=== PATIENT | male | born 1945 | race Caucasian/White ===

== ENCOUNTER → 2017-10-28 | Day surgery (SDC) | payer OTHER ==
[2017-10-26 13:46] LABS: BASOPHILS # (AUTO) 0.1 (0.0-0.1); BASOPHILS % 0.8 % (0.0-1.0); EOSINOPHILS # (AUTO) 0.2 (0.0-0.4); EOSINOPHILS % 3.2 % (0.0-6.0); HEMATOCRIT 47.6 % (38.2-49.6); HEMOGLOBIN 16.2 g/dL (14.0-18.0); LYMPHOCYTES # (AUTO) 1.4 (1.0-3.2); LYMPHOCYTES % 22.7 % (18.0-39.1); MEAN CORPUSCULAR HEMOGLOBIN 31.1 pg (28-32); MEAN CORPUSCULAR VOLUME 91.4 fL (81-99); MONOCYTES # (AUTO) 0.6 (0.2-0.8); MONOCYTES % 9.4 % (4.4-11.3); NEUTROPHILS # (AUTO) 3.9 (2.1-6.9); NEUTROPHILS % 63.4 % (38.7-80.0); PLATELET COUNT 209 x10e3/uL (140-360); RED BLOOD COUNT 5.21 x10e6/uL (4.3-5.7); RED CELL DISTRIBUTION WIDTH 12.9 % (11.7-14.4)
[2017-10-26 14:00] LABS: ANION GAP 13.6 mmol/L (8-16); CALCIUM 9.3 mg/dL (8.4-10.2); CREATININE, SERUM 1.25 mg/dL (0.72-1.25); POTASSIUM 4.6 mmol/L (3.5-5.1)
--- NOTE | 2017-10-26 14:20 | Diagnostic Imaging Report ---
PROCEDURE: Frontal and lateral views of the chest. COMPARISON: None. INDICATIONS: PRE OP FINDINGS: Lines/tubes: Dual lead left chest wall cardiac device in place. Lungs: Limited by low lung volumes. There is no evidence of pneumonia or pulmonary edema. Pleura: There is no pleural effusion or pneumothorax. Heart and mediastinum: Enlarged cardiac silhouette. Bones: No acute bony abnormality. IMPRESSION: Enlarged cardiac silhouette. No focal consolidation. Dictated by: Sage Whaley M.D. on 10/26/2017 at 14:29 Electronically approved by: Sage Whaley M.D. on 10/26/2017 at 14:29
[~2017-10-28] MED LIST: ACETAMINOPHEN 1000 MG/100 ML IV ONE; ATORVASTATIN CA20 MG PO; BUPIVACAINE 0.25% 30ML SDV INJ ONE; DEXAMETHASONE SOD PHOS INJ 4 MG/ML VIAL ONE; FENTANYL CITRATE/PF 100MCG/2 ML INJ ONE; GLYCOPYRROLATE INJ 1MG/ 5 ML SYR ONE; HYDROMORPHONE 2MG/ML INJ ONE; LEVOFLOXACIN 500MG/D5W 100ML 100 ML IV ONE; LIDOCAINE 1% W/EPINEPHRINE 20 ML VIAL ONE; LIDOCAINE HCL (LTA) 4 ML SOLN ONE; LIDOCAINE HCL 2% LOCAL INJ 5 ML SDV VIAL INJ ONE; LISINOPRIL10 MG PO; METOPROLOL SUCC25 MG PO; MIDAZOLAM HCL 2 MG/2 ML VIAL ONE; NEOSTIGMINE 5 MG/5ML SYR ONE; NORCO 10-325 T1 EACH PO; ONDANSETRON HCL INJ 2 MG/ML VIAL ONE; PROPOFOL IV EMULSION 10 MG/ML 20 ML VIAL ONE; ROCURONIUM BROMIDE 10 MG/ML 5ML VIAL ONE; SEVOFLURANE INHAL SOLN 250 ML PEN BTL ONE
--- NOTE | 2017-10-28 10:54 | Operative Report ---
DATE OF PROCEDURE: October 28, 2017 PREOPERATIVE DIAGNOSIS: Umbilical hernia. POSTOPERATIVE DIAGNOSIS: Umbilical hernia. OPERATION PERFORMED: Repair of umbilical hernia with V-patch. [employer] OPERATOR: FLETCHER Gonzalez. ANESTHESIA: General. COMPLICATIONS: None. ESTIMATED BLOOD LOSS: Minimal. DESCRIPTION OF PROCEDURE: With the patient lying in bed in the supine position under good general endotracheal anesthesia, the abdomen was prepped with Betadine solution and draped in the usual manner. A semilunar subumbilical incision was made. It was carried down through the subcutaneous tissue down to the fascia. The hernia defect was then encircled and the umbilicus was detached from the hernia sac. The contents were reduced back to the intra-abdominal cavity. A medium sized V-patch was then placed into the intra-abdominal cavity and deployed without any problems, and then anchored using interrupted sutures of 0 Ethibond. The patch was then further anchored with a transverse closure of the hernia defect using 0 Ethibond. This gave us satisfactory closure without any tension. The whole area was thoroughly irrigated. Perfect hemostasis was ascertained. The fascia was then infiltrated with 0.25% Marcaine solution. The umbilicus was tacked back down to the midline fascia with 3-0 Vicryl. The subcutaneous tissue was approximated with 3-0 Vicryl and the skin was closed with interrupted vertical mattress sutures of 3-0 silk. A dressing was applied. The sponge, lap and needle count was correct. Patient tolerated the procedure well, and returned to the recovery room in stable condition. Job#: [id number] SHAMIR
== END | disposition home or self-care (01) ==
LOC: OR 06:32
PROVIDERS: ATTEND Surgery
DX: K42.9 Umbilical hernia without obstruction or gangrene (principal); G47.33 Obstructive sleep apnea (adult) (pediatric); I10 Essential (primary) hypertension; K57.10 Diverticulosis of small intestine without perforation or abscess without bleeding; Z01.810 Encounter for preprocedural cardiovascular examination; Z01.812 Encounter for preprocedural laboratory examination; Z01.818 Encounter for other preprocedural examination; Z95.0 Presence of cardiac pacemaker
CPT/HCPCS: 36415; 49585; 71046; 80048; 85025; 93005; C1781; J1100; J1170; J1956; J2001; J2250; J2405

== ENCOUNTER → 2018-11-12 | Day surgery (SDC) | payer OTHER ==
[2018-11-10 17:00] LABS: BASOPHILS % 0.5 % (0.0-1.0); EOSINOPHILS # (AUTO) 0.1 (0.0-0.4); EOSINOPHILS % 2.2 % (0.0-6.0); HEMATOCRIT 47.9 % (38.2-49.6); HEMOGLOBIN 16.4 g/dL (14.0-18.0); LYMPHOCYTES # (AUTO) 1.1 (1.0-3.2); LYMPHOCYTES % 17.9 % (18.0-39.1); MEAN CORPUSCULAR HEMOGLOBIN 30.9 pg (28-32); MEAN CORPUSCULAR HGB CONC 34.2 g/dL (31-35); MEAN CORPUSCULAR VOLUME 90.2 fL (81-99); MONOCYTES # (AUTO) 0.6 (0.2-0.8); NEUTROPHILS # (AUTO) 4.1 (2.1-6.9); NEUTROPHILS % 68.9 % (38.7-80.0); PLATELET COUNT 198 x10e3/uL (140-360); RED BLOOD COUNT 5.31 x10e6/uL (4.3-5.7); RED CELL DISTRIBUTION WIDTH 12.6 % (11.7-14.4)
--- NOTE | 2018-11-10 17:17 | Diagnostic Imaging Report ---
Frontal and lateral views of the chest. HISTORY: Preop, cystoureteroscopy COMPARISON: None available. DISCUSSION: Soft tissue attenuation partially limits sensitivity of the exam. Left-sided implanted dual-lead cardiac device. Lungs: Mildly low lung volumes result in bibasilar vascular crowding, accentuation of the pulmonary interstitial markings, central pulmonary vasculature, and the cardiac silhouette. Allowing for these limitations, the findings are as follows: No evidence of a consolidative pneumonia or pulmonary alveolar edema. Pleura: No pleural effusion or pneumothorax. Heart and mediastinum: The cardiomediastinal silhouette appears unremarkable. Bones and soft tissues: Appear unremarkable. IMPRESSION: No acute radiographic abnormality. Signed by: Dr. Curtis Lozada D.O., M.M.M. on 11/10/2018 5:14 PM
[~2018-11-12] MED LIST changes: -ACETAMINOPHEN 1000 MG/100 ML IV ONE; +BACITRACIN 50,000 UNIT VIAL ONE; +BUPIVACAINE HCL 0.5% 10ML MPF VIAL INJ ONE; +CEFAZOLIN SOD 1 GM/NS 50ML 50 ML IV ONE; +CLINDAMYCIN 600MG / 50ML 50 ML IV ONE; +FLOMAX0.4 MG PO; +GABAPENTIN300 MG PO; -GLYCOPYRROLATE INJ 1MG/ 5 ML SYR ONE; -HYDROMORPHONE 2MG/ML INJ ONE; +KETAMINE HCL INJ 50 MG/ML 10 ML VIAL ONE; -LEVOFLOXACIN 500MG/D5W 100ML 100 ML IV ONE; -LIDOCAINE 1% W/EPINEPHRINE 20 ML VIAL ONE; -LIDOCAINE HCL (LTA) 4 ML SOLN ONE; +LIDOCAINE HCL 1% LOCAL INJ 20 ML VIAL ONE; +METOPROLOL TART25 MG PO; -NEOSTIGMINE 5 MG/5ML SYR ONE; -ONDANSETRON HCL INJ 2 MG/ML VIAL ONE; -ROCURONIUM BROMIDE 10 MG/ML 5ML VIAL ONE
--- OUTSIDE RECORDS SUMMARY | 2018-11-12 05:16 | XMS REPORT | Continuity of Care Document ---
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, LUMBAR RE Active 06/24/2018 [facility] HIP PAIN Active 06/08/2018 [facility] M25.561 - PAIN IN RIGHT KNEE Active 02/11/2018 [facility] UNK Active 08/11/2017 [facility] BRADYCARDIA, CONCERN FOR SICK SINUS SYND Active 08/28/2014 [facility] CHEST PAIN Active 08/28/2014 [facility] High cholesterol Resolved Problem 03/13/2016 [facility] [place] Hypertension Resolved Problem 03/13/2016 [facility] [place] Sleep apnea Resolved Problem 03/13/2016 [facility] [place] Umbilical hernia Resolved Problem 03/13/2016 [facility] [place] Cardiac pacemaker Active Problem 08/17/2017 [facility] CAD (<span ID="[id number]">Confirmed</span>) Active Problem 08/17/2017 [facility] Gout Active Problem 08/17/2017 [facility] Hiatal hernia Active Problem 08/17/2017 [facility] High cholesterol Resolved Problem 08/17/2017 [facility] [place] Hypertension Resolved Problem 08/17/2017 [facility] [place] Sleep apnea Resolved Problem 08/17/2017 [facility] [place] Umbilical hernia Resolved Problem 08/17/2017 [facility] [place] CARDIAC DYSRHYTHMIAS NEC Active [facility] M54.17 Active [facility] RADICULOPATHY, LUMBOSACRAL REGION Active [facility] Medications Medication Details Route Status Patient Instructions Ordering Provider Order Date Source Sodium Chloride 0.9% IV 1000 mL 1,000 mL, Rate: 25 ml/hr, Infuse over: 40 hr, Route: IV, Dosing Weight 125.455 kg, Total Volume: 1,000, Start date: 08/14/17 10:59:00 CDT, Duration: 30 day, Stop date: 09/13/17 10:58:00 [employer] Inactive 08/14/2017 [facility] Aleve 220 mg oral capsule 220 mg=1 cap, PO, Q12H, 0 Refill(s) Active 08/13/2017 [facility] oxybutynin 5 mg oral tablet 10 mg=2 tab, PO, Daily, 0 Refill(s) No Longer Active 08/13/2017 [facility] lisinopril 20 mg oral tablet 20 mg=1 tab, PO, Daily, 0 Refill(s) Active 08/13/2017 [facility] indomethacin 50 mg oral capsule 50 mg=1 cap, PO, BID, 0 Refill(s) No Longer Active 08/13/2017 [facility] metoprolol tartrate 25 mg oral tablet 12.5 mg=0.5 tab, PO, BID, 0 Refill(s) Active 08/13/2017 [facility] acetaminophen-hydrocodone 325 mg-7.5 mg oral tablet 1 tab, PO, PRN, 0 Refill(s) No Longer Active 08/13/2017 [facility] Influenza Virus Vaccine, Inactivated Y-[id number] (H3N2)-like virus ([id number] [facility] X-175C) strain / Influenza Virus Vaccine, Inactivated [id number]-25-2007, IVR-148 (H1N1) strain / Influenza Virus Vaccine, Inactivated, A-[id number]-5-lik 0.5 ml, Route: IM, Drug Form: SUSP, Daily, Start date: 09/01/14 12:00:00, Duration: 1 doses or times, Stop date: 09/01/14 12:00:00Notes: (Same as: Fluzone Quadrivalent) Inactive 09/01/2014 [facility] Acetaminophen 300 MG / Codeine Phosphate 30 MG Oral Tablet [Tylenol with Codeine #3] 2 tab, PO, Q6H, for pain, # 40 tab, 0 Refill(s) Active 09/01/2014 [facility] Metoprolol Tartrate 25 mg oral tablet 12.5 mg=0.5 tab, PO, BID, # 30 tab, 0 Refill(s) Active 09/01/2014 [facility] Aspirin 81 MG Enteric Coated Tablet 81 mg=1 tab, PO, Daily, # 100 tab, 0 Refill(s) Active 09/01/2014 [facility] minocycline 100 mg oral capsule 100 mg=1 cap, PO, Q12H, # 14 cap, 0 Refill(s) Active 09/01/2014 [facility] Vancomycin 1 gm, Route: IVPB, ONCE, Dosing Weight 125.455, kg, Start date: 08/31/14 14:42:00, Stop date: 08/31/14 14:42:00 Inactive 08/31/2014 [facility] Acetaminophen 325 mg, 1 tab, Route: PO, Drug form: TAB, Q4H, Dosing Weight 125.455, kg, PRN Pain Score 4-6, Start date: 08/31/14 14:42:00, Duration: 30 day, Stop date: 09/30/14 14:41:00Notes: Do not exceed 4 gm/day. (Same as: Tylenol) No Longer Active 08/31/2014 [facility] acetaminophen-codeine #3 1 tab, Route: PO, Drug Form: TAB, Dosing Weight 125.455, kg, Q4H, PRN Pain Score 4-6, Start date: 08/31/14 14:42:00, Duration: 30 day, Stop date: 09/30/14 14:41:00Notes: Do not exceed 4gm/day of acetaminophen. (Same as: Tylenol with Codeine # 3) No Longer Active 08/31/2014 [facility] Vancomycin 1 gm, 200 mL, Route: IVPB, Drug form: INJ, ONCE, Dosing Weight 129.545, kg, [employer], Start date: 08/31/14 14:39:00, Stop date: 08/31/14 14:39:00 Inactive 08/31/2014 [facility] Aspirin 81 MG Enteric Coated Tablet 81 mg, 1 tab, Route: PO, Drug form: ECTAB, Daily, Dosing Weight 129.545, kg, Start date: 08/30/14 9:00:00, Duration: 30 day, Stop date: 09/28/14 9:00:00Notes: Do not crush or chew. (Same As: Ecotrin) No Longer Active 08/30/2014 [facility] aspirin 81 mg, 1 tab, Route: PO, Drug form: ECTAB, Daily, Dosing Weight 129.545, kg, Start date: 08/30/14 9:00:00, Duration: 30 day, Stop date: 09/28/14 9:00:00Notes: Do not crush or chew. (Same As: Ecotrin) No Longer Active 08/30/2014 [facility] Nitroglycerin 0.4 mg, Route: SL, Drug form: TAB, Q5Min, Dosing Weight 129.545, kg, PRN Chest Pain, Start date: 08/30/14 8:38:00, Duration: 3 doses or times, Stop date: Limited # of times Inactive 08/30/2014 [facility] Acetaminophen 650 mg, 2 tab, Route: PO, Drug form: TAB, Q4H, Dosing Weight 129.545, kg, PRN Headache 1-5, Start date: 08/30/14 8:38:00, Duration: 30 day, Stop date: 09/29/14 8:37:00Notes: Do not exceed 4 gm/day. (Same as: Tylenol) No Longer Active 08/30/2014 [facility] Ondansetron 4 mg, 1 tab, Route: PO, Drug form: TAB, Q8H, Dosing Weight 129.545, kg, PRN Nausea & Vomiting, Start date: 08/30/14 8:38:00, Duration: 30 day, Stop date: 09/29/14 8:37:00Notes: (Same as: Zofran) No Longer Active 08/30/2014 [facility] Sodium Chloride 0.154 MEQ/ML Injectable Solution 1,000 mL, Rate: 30 ml/hr, Infuse over: 33.3 hr, Route: IV, Dosing Weight 129.545 kg, Total Volume: 1,000, Start date: 08/30/14 8:38:00, Duration: 30 day, Stop date: 09/29/14 8:37:00 No Longer Active 08/30/2014 [facility] Saline Flush 0.9% 10 ml, Route: IVP, Drug Form: INJ, Dosing Weight 129.545, kg, Q12H, Start date: 08/29/14 21:00:00, Duration: 30 day, Stop date: 09/28/14 9:00:00Notes: Same as: BD Posiflush Sterile No Longer Active 08/30/2014 [facility] atorvastatin 20 mg, 2 tab, Route: PO, Drug form: TAB, Bedtime, Dosing Weight 129.545, kg, Start date: 08/29/14 21:00:00, Duration: 30 day, Stop date: 09/27/14 21:00:00Notes: (Same As: Lipitor) No Longer Active 08/30/2014 [facility] atropine 0.5 mg, 5 mL, Route: IVP, Drug form: INJ, PRN, PRN Bradycardia, Start date: 08/29/14 18:44:00, Duration: 30 day, Stop date: 09/28/14 18:43:00 No Longer Active 08/30/2014 [facility] Benicar 40 mg, 2 tab, Route: PO, Drug form: TAB, Daily, Dosing Weight 129.545, kg, Start date: 08/29/14 15:00:00, Duration: 30 day, Stop date: 09/28/14 9:00:00 Inactive 08/29/2014 [facility] Lovenox 120 mg, 0.8 mL, Route: SUB-Q, Drug form: INJ, [id number], Dosing Weight 129.545, kg, Start date: 08/29/14 13:00:00, Duration: 30 day, Stop date: 09/28/14 1:00:00Notes: Nurse to ensure documentation of patient education per anticoagulation policy. (Same as: Lovenox) No Longer Active 08/29/2014 [facility] Nitroglycerin 0.4 MG Sublingual Tablet 0.4 mg, 1 tab, Route: SL, Drug form: TAB, Q5Min, Dosing Weight 129.545, kg, PRN Chest Pain, Start date: 08/29/14 12:22:00, Duration: 30 day, Stop date: 09/28/14 12:21:00Notes: (Same as:Nitroquick, Nitrostat) "Do Not Crush" Sublingual tablet No Longer Active 08/29/2014 [facility] aspirin 325 mg tablet 325 mg, 1 tab, Route: PO, Drug form: TAB, Daily, Dosing Weight 129.545, kg, Start date: 08/29/14 12:15:00, Duration: 30 day, Stop date: 09/28/14 9:00:00Notes: Take with food. No Longer Active 08/29/2014 [facility] Nitroglycerin 0.4 MG Sublingual Tablet 0.4 mg, 0, Route: SL, Drug form: TAB, ONCE, Dosing Weight 129.545, kg, PRN Chest Pain, Start date: 08/29/14 12:14:00, Duration: 1 doses or times, Stop date: Limited # of times Inactive 08/29/2014 [facility] Saline Flush 0.9% 10 ml, Route: IVP, Drug Form: INJ, Dosing Weight 129.545, kg, PRN, PRN Line Flush, Start date: 08/29/14 12:13:00, Duration: 30 day, Stop date: 09/28/14 12:12:00Notes: Same as: BD Posiflush Sterile No Longer Active 08/29/2014 [facility] Acetaminophen 325 MG / Hydrocodone Bitartrate 7.5 MG Oral Tablet 0.5 tab, Route: PO, Drug Form: TAB, Dosing Weight 129.545, kg, Q6H, PRN For Pain, Start date: 08/29/14 9:08:00, Stop date: 09/28/14 9:07:00Notes: Same as [place] 325-7.5mg Do not exceed 4gm/day of acetaminophen. No Longer Active 08/29/2014 [facility] Acetaminophen 325 MG / Hydrocodone Bitartrate 7.5 MG Oral Tablet 0.5 tab, PO, Q6H, as needed for pain Active 08/29/2014 [facility] atorvastatin 20 mg oral tablet 20 mg=1 tab, PO, Bedtime Active 08/29/2014 [facility] Olmesartan medoxomil 40 MG Oral Tablet [Benicar] 40 mg=1 tab, PO, Daily Active 08/29/2014 [facility] Allergies, Adverse Reactions, Alerts Substance Category Reaction Severity Reaction type Status Date Reported Comments Source penicillins Assertion Drug allergy Active [facility] Valium Assertion Drug allergy Active [facility] Immunizations Immunization Date Given Site Status Last Updated Comments Source influenza virus vaccine, inactivated 09/01/2014 Right Deltoid completed [facility] K[facility]LINE [facility] [place] influenza virus vaccine, inactivated 09/01/2014 Right Deltoid completed [facility] K[facility] Results Order Name Results Value Reference Range Date Interpretation Comments Source Spine lumbar myelogram DX Spine lumbar myelogram DX Spine lumbar myelogram DX Comparison: CT lumbar spine 06/08/2018 Clinical Indication: - M54.16 Radiculopathy, lumbar region, M47.816 Spondylosis without myelopathy or radiculopathy, lumbar region, M51.36 Other intervertebral disc degeneration, lumbar region, M54.5 Low back pain; Total DLP: 149 mGy / 1,875.3 uGym2 Fluoro Time: 3:04 MINUTES EXAM: FLUOROSCOPY-GUIDED LUMBAR PUNCTURE FOR CT MYELOGRAM PROCEDURE: Lumbar puncture was performed under sterile conditions utilizing fluoroscopic guidance with a 22 gauge spinal needle at L3-4 level. Lidocaine was utilized for local anesthesia. 12 mL of nonionic contrast, Omnipaque 180 was instilled into the lumbar thecal sac. The patient tolerated procedure well and no immediate complications. MYELOGRAMS. Digital images of the lumbar spine show intrathecal administration of contrast. IMPRESSION: Successful lumbar puncture for CT myelogram of the lumbar spine. SL: [id number] 07/01/2018 - - Read by: Damion Pruitt MD Dictated Date/time: 07/01/18 15:24 Electronically Signed by: Damion Pruitt MD 07/01/18 15:26 FINAL REPORT [facility] Spine lumbar myelogram CT Spine lumbar myelogram CT Study: Spine lumbar myelogram CT 07/01/2018 8:31 AM CDT Ordering Physician: Nancy Aragon Clinical Indication: Lumbago. Comparison: None TECHNIQUE: Sequential trans-axial images of the lumbar spine are obtained with a multi-detector helical CT. Coronal and sagittal reconstructions are obtained. CT Radiation Dose DLP 777 mGy-cm. FINDINGS: Lumbar lordosis is mildly straightened. Vertebral body heights are adequately maintained, with normal alignment. At L4-5, there is marked loss of disc height with mild endplate sclerosis and vacuum. L5-S1, there is mild loss of disc height with mild endplate sclerosis and vacuum. Marked anterior spondylosis is present at L4-5 and L5-S1. The conus terminates appropriately at the L1-2 level. [id number]: Unremarkable. L3-4: A 2 mm concentric annular disc bulge is suspected, without nerve root impingement. L4-5: Bilateral decompressive laminectomies and partial facetectomies are present. There is mild to moderate bilateral facet arthrosis. Moderate posterior and bilateral posterior lateral foraminal/extra foraminal spondylosis is present with 5 or 6 mm circumferential traction bulge or chronic disc protrusion. There is flattening of the ventral thecal sac. Mild lateral recess stenoses are suspected bilaterally. There are mild to moderate right and moderate left foraminal stenoses, with possible flattening of the anterior inferior surface of the left L4 ganglion and mild posterior displacement of the exiting left L4 root. There is mild thickening and distortion of nerve roots within the thecal sac, compatible with arachnoiditis. L5-S1: Epidural lipomatosis is present in the distal canal. The thecal sac is concentrically narrowed measuring 9 mm AP by 7 mm TR. Mild bilateral facet arthrosis is present, with mild posterior and bilateral posterior lateral foraminal/extra foraminal spondylosis. A 4 or 5 mm broad-based posterior disc protrusion is noted, lateralizing to the right foraminal and extraforaminal regions. There are moderate right and mild left foraminal stenoses, with probable flattening of the proximal exiting right L5 root. No lateral recess stenosis is seen. There is no evidence for fracture or destructive lesion. No spondylolisthesis is seen. The sacrum and sacroiliac joints are unremarkable, insofar as they're assessed. A 7 cm right lower pole renal cyst is suspected, incompletely assessed on this study. Heavy aortoiliac vascular calcification is present. There is calcium at the origins of the renal arteries, with moderate to high-grade luminal narrowing bilaterally. Additional vascular imaging may be helpful. Impression: At L4-5: Bilateral laminectomies and partial facetectomies are present. Mild to moderate facet arthrosis is present with moderate spondylosis and circumferential traction bulge or chronic disc protrusion. Mild to moderate right and moderate left foraminal stenoses are present, with mass effect upon the left L4 ganglion and proximal exiting root. Mild lateral recess encroachment is suspected, with underfilling of the L5 nerve root sleeves bilaterally. There is epidural fibrosis, with distortion and mild clumping of nerve roots within the thecal sac, greater on the right than the left. At L5-S1, mild spondylosis and facet arthrosis noted, with 4 or 5 mm circumferential disc protrusion lateralizing to the right foraminal and extraforaminal region. Moderate right and mild left foraminal stenoses are present with probable flattening of the right L5 exiting root. There is central stenosis, with moderate thecal sac narrowing. This relates primarily to epidural lipomatosis. Heavy aortoiliac vascular calcification is present. Calcium is noted at the origins of the renal arteries, with moderate to marked luminal narrowing. Additional vascular imaging may be helpful. A 7 cm right lower pole renal cyst is suspected, incompletely assessed on this exam. SL: [id number] 07/01/2018 - - Read by: Diana Mason MD Dictated Date/time: 07/01/18 15:06 Electronically Signed by: Diana Mason MD 07/01/18 15:22 FINAL REPORT [facility] Spine lumbar wo contrast CT Spine lumbar wo contrast CT CLINICAL INDICATION: - back pain with radicula dequan; COMPARISON: None Dose: XAM=805.06 mGy-cm FINDINGS: CT LUMBAR SPINE WITHOUT CONTRAST: Axial, coronal, and sagittal images of the lumbar spine were obtained. Multilevel spondylosis with both central canal and neural foraminal stenosis throughout with bulges/protrusions suspected not fully characterized. There is a large bulge/ridging disc osteophyte complex at the L4-L5 level with marked decrease disc height and ensuing moderate neural foraminal narrowing probably contacting the exiting L4 liver bilaterally. Curvature: Vertebral body heights: Maintained. Intervertebral disk space heights: Lies maintained. Facets: Normally aligned but facet arthropathy throughout. Fractures: There are no fractures. Herniations: See above Neural foramina: The neuroforamina are otherwise patent and the nerve roots are seen surrounded by epidural fat. IMPRESSION: 1. Multilevel spondylosis with both central canal and neural foraminal stenosis throughout with bulges/protrusions suspected not fully characterized. There is a large bulge/ridging disc osteophyte complex at the L4-L5 level with marked decrease disc height and ensuing moderate neural foraminal narrowing probably contacting the exiting L4 liver bilaterally. MR correlation may have merit. SL: [id number] 06/08/2018 - - Read by: Maximo Burnette DO Dictated Date/time: 06/08/18 21:39 Electronically Signed by: Maximo Burnette DO 06/08/18 21:44 FINAL REPORT [facility] Hip 2/3 views uni w pelvis DX Hip 2/3 views uni w pelvis DX Right hip 2/3 views uni w pelvis DX, 06/08/2018 3:43 PM CDT HISTORY: - pain COMPARISON: None FINDINGS: No evidence for acute fracture. Femoral heads are intact and located bilaterally. Moderate right and mild left hip osteoporosis. Bony pelvis intact. Mild lower lumbar spondylosis. Soft tissues unremarkable. IMPRESSION: No acute osseous abnormality. Degenerative changes. SL: [id number] 06/08/2018 - - Read by: Sulaiman Salazar MD Dictated Date/time: 06/08/18 16:10 Electronically Signed by: Sulaiman Salazar 06/08/18 16:12 FINAL REPORT [facility] Spine lumbar 2 or 3 views DX Spine lumbar 2 or 3 views DX Patient Name: ALEXY HARPER : 1945; Age: 72 years Male MR: [id number] Study: Spine lumbar 2 or 3 views DX 06/08/2018 3:43 PM CDT CLINICAL INDICATION: - back pain COMPARISON: Lumbar spine radiograph on 06/07/2018 FINDINGS: Views and laterality: Lumbar spine 3 views There are 5 nonrib-bearing lumbar type vertebral bodies. The lumbar vertebral bodies are of normal height and alignment. No acute fracture. No subluxation. Severe disc space narrowing at L4-L5 and moderately at L5-S1. Prominent facet arthropathy within the lower lumbar spine. Atherosclerotic calcifications of the abdominal aorta. IMPRESSION: No acute lumbar spine abnormalities. No significant change since 06/07/2018. : [id number] 06/08/2018 - - Read by: Devan Mcclendon MD Dictated Date/time: 06/08/18 16:15 Electronically Signed by: Devan Mcclendon MD 06/08/18 16:16 FINAL REPORT [facility] Spine lumbar series DX Spine lumbar series DX EXAM: XR LUMBAR SPINE 5 VIEWS DATE: 06/07/2018 9:27 AM CDT INDICATION: - M54.41 Lumbago with sciatica, right side COMPARISON: Lumbar spine radiographs 09/19/2015 TECHNIQUE: AP, lateral, coned lateral, LPO and RPO radiographs of the lumbar spine FINDINGS: 5 nonrib bearing, lumbar-type vertebral bodies are present. Vertebral body heights are maintained. Severe disc height loss at L4-L5 is not significantly changed. Moderate disc height loss at L5-S1 is slightly increased. There is no spondylolysis or spondylolisthesis. Severe facet arthropathy at L3-L4, L4-L5, and L5-S1. Arterial calcifications present. IMPRESSION: 1. Severe degenerative disease at L4-L5 and L5-S1. 2. Severe facet arthrosis of the lower lumbar spine. 06/07/2018 - - This report was dictated by a Legal Researcher/Fellow. I have personally reviewed the images as well as the Resident's interpretation and agree with the findings. Read by: Mor Sawant MD Resident: Mor Sawant MD Dictated Date/time: 06/07/18 10:29 Electronically Signed by: Leonel Siddiqui MD 06/07/18 16:58 FINAL REPORT [facility] Knee 4+ views unilateral DX Knee 4+ views unilateral DX EXAM: XR RIGHT KNEE 4 VIEWS DATE: 02/11/2018 11:03 AM CDT INDICATION: - M25.561 Pain in right knee COMPARISON: None. TECHNIQUE: 4 views of the knee FINDINGS: No acute fracture or malalignment is identified. No significant degenerative changes. Small right knee joint effusion is present. There is prepatellar and suprapatellar soft tissue swelling. Peripheral vascular calcifications. IMPRESSION: 1. No acute bony abnormality. 2. Small knee joint effusion and prepatellar and suprapatellar soft tissue swelling. 02/11/2018 - - This report was dictated by a Legal Researcher/Fellow. I have personally reviewed the images as well as the Resident's interpretation and agree with the findings. Read by: Abbie Jaramillo MD Resident: Abbie Jaramillo MD Dictated Date/time: 02/11/18 13:09 Electronically Signed by: Jasson Lopez MD 02/11/18 14:08 FINAL REPORT [facility] Shoulder series DX Shoulder series DX EXAM: XR RIGHT SHOULDER 3 VIEWS DATE: 03/10/2016 9:17 AM CDT INDICATION: M75.41 Impingement syndrome of right shoulder COMPARISON: None available TECHNIQUE: AP views in internal and external rotation, and a Y view of the right shoulder. FINDINGS: No acute fracture or malalignment is identified. Numerous small osteophytes are identified at the right acromioclavicular joint. The glenohumeral and acromioclavicular joint spaces are preserved. No soft tissue abnormality is identified. IMPRESSION: 1. Mild osteoarthrosis of the right acromioclavicular joint. 2. No acute abnormality. 03/10/2016 - - This report was dictated by a Legal Researcher/Fellow. I have personally reviewed the images as well as the Resident's interpretation and agree with the findings. Read by: Austin Nelson MD Resident: Austin Nelson MD Dictated Date/time: 03/10/16 09:50 Electronically Signed by: Dorothy Be MD 03/10/16 15:27 FINAL REPORT [facility] Spine lumbar series DX Spine lumbar series DX Examination: Lumbar spine, 5 views History: M54.17 Radiculopathy, lumbosacral region Comparison: None. Findings: Multiple views of the lumbar spine show 5 nonrib bearing lumbar vertebra. No acute compression fracture or subluxation is seen. Severe degenerative disc disease at L4-L5 is seen with severe disc height loss and vacuum disc phenomena with marginal osteophyte formation. Mild degenerative disc disease at L5-S1 is also seen. No pars interarticularis defects are noted. Arterial calcifications are present. IMPRESSION: Advanced degenerative disc disease of the lower lumbar spine at L4-L5. SL: 16 09/19/2015 - - Read by: Norman Marsh MD Dictated Date/time: 09/19/15 12:59 Electronically Signed by: Norman Marsh MD 09/19/15 13:00 FINAL REPORT [facility] ELECTROLYTES Sodium Lvl 141 meq/L 135 - 145 09/01/2014 [facility] ELECTROLYTES Chloride Lvl 108 meq/L 95 - 109 09/01/2014 [facility] ELECTROLYTES Potassium Lvl 3.8 meq/L 3.5 - 5.1 09/01/2014 [facility] ELECTROLYTES eGFR 78 mL/min/1.73m2 09/01/2014 1Result Comment: The eGFR is calculated using the CKD-EPI formula. In most young, healthy individuals the eGFR will be >90 mL/min/1.73m2. The eGFR declines with age. An eGFR of 60-89 may be normal in some populations, particularly the elderly, for whom the CKD-EPI formula has not been extensively validated. Use of the eGFR is not recommended in the following populations: Individuals with unstable creatinine concentrations, including patients and those with serious co-morbid conditions. Patients with extremes in muscle mass or diet. The data above are obtained from the National Kidney Disease Education Program (NKDEP) which additionally recommends that when the eGFR is used in patients with extremes of body mass index for purposes of drug dosing, the eGFR should be multiplied by the estimated BMI. [facility] ELECTROLYTES Glucose Lvl 99 mg/dL 70 - 99 09/01/2014 4Interpretive Data: Adult reference range values reflect the clinical guidelines of the [place] [employer]. [facility] ELECTROLYTES Calcium Lvl 8.4 mg/dL 8.5 - 10.5 09/01/2014 [facility] ELECTROLYTES BUN 21 mg/dL 7 - 22 09/01/2014 [facility] Women ELECTROLYTES CO2 23 meq/L 24 - 32 09/01/2014 [facility] ELECTROLYTES Creatinine Lvl 1.0 mg/dL 0.5 - 1.4 09/01/2014 [facility] ELECTROLYTES AGAP 13.8 meq/L 10.0 - 20.0 09/01/2014 [facility] HEMATOLOGY Hct 46.0 % 42.0 - 54.0 09/01/2014 [facility] Platelet 183 K/CMM 133 - 450 09/01/2014 [facility] RDW 13.4 % 11.5 - 14.5 09/01/2014 [facility] MCV 91.7 fL 80.0 - 94.0 09/01/2014 [facility] MCH 31.5 pg 27.0 - 31.0 09/01/2014 [facility] MPV 8.7 fL 7.4 - 10.4 09/01/2014 [facility] MCHC 34.3 g/dL 32.0 - 36.0 09/01/2014 [facility] WBC 6.0 K/CMM 3.7 - 10.4 09/01/2014 [facility] RBC 5.01 M/CMM 4.70 - 6.10 09/01/2014 [facility] Hgb 15.8 g/dL 14.0 - 18.0 09/01/2014 [facility] Lymphocytes 17.2 % 20.0 - 40.0 09/01/2014 [facility] Monocytes 8.9 % 2.0 - 12.0 09/01/2014 [facility] Segs-Bands # 4.2 K/CMM 1.5 - 8.1 09/01/2014 [facility] Eosinophils # 0.2 K/CMM 0.0 - 0.5 09/01/2014 [facility] HEMATOLOGY Segs 69.9 % 45.0 - 75.0 09/01/2014 [facility] HEMATOLOGY Lymphocytes # 1.0 K/CMM 1.0 - 5.5 09/01/2014 [facility] HEMATOLOGY Monocytes # 0.5 K/CMM 0.0 - 0.8 09/01/2014 [facility] HEMATOLOGY Basophils 0.5 % 0.0 - 1.0 09/01/2014 [facility] HEMATOLOGY Eosinophils 3.5 % 0.0 - 4.0 09/01/2014 [facility] CHEM PANEL eGFR 62 mL/min/1.73m2 08/31/2014 2Result Comment: The eGFR is calculated using the CKD-EPI formula. In most young, healthy individuals the eGFR will be >90 mL/min/1.73m2. The eGFR declines with age. An eGFR of 60-89 may be normal in some populations, particularly the elderly, for whom the CKD-EPI formula has not been extensively validated. Use of the eGFR is not recommended in the following populations: Individuals with unstable creatinine concentrations, including patients and those with serious co-morbid conditions. Patients with extremes in muscle mass or diet. The data above are obtained from the National Kidney Disease Education Program (NKDEP) which additionally recommends that when the eGFR is used in patients with extremes of body mass index for purposes of drug dosing, the eGFR should be multiplied by the estimated BMI. [facility] CHEM PANEL Calcium Lvl 8.2 mg/dL 8.5 - 10.5 08/31/2014 [facility] CHEM PANEL BUN 23 mg/dL 7 - 22 08/31/2014 [facility] CHEM PANEL Glucose Lvl 99 mg/dL 70 - 99 08/31/2014 5Interpretive Data: Adult reference range values reflect the clinical guidelines of the [place] [employer]. [facility] CHEM PANEL Creatinine Lvl 1.2 mg/dL 0.5 - 1.4 08/31/2014 [facility] CHEM PANEL Sodium Lvl 141 meq/L 135 - 145 08/31/2014 [facility] CHEM PANEL Potassium Lvl 4.0 meq/L 3.5 - 5.1 08/31/2014 [facility] CHEM PANEL Chloride Lvl 107 meq/L 95 - 109 08/31/2014 [facility] CHEM PANEL CO2 25 meq/L 24 - 32 08/31/2014 [facility] CHEM PANEL AGAP 13.0 meq/L 10.0 - 20.0 08/31/2014 [facility] HEMATOLOGY Eosinophils # 0.2 K/CMM 0.0 - 0.5 08/31/2014 [facility] HEMATOLOGY Lymphocytes # 1.5 K/CMM 1.0 - 5.5 08/31/2014 [facility] HEMATOLOGY Monocytes # 0.8 K/CMM 0.0 - 0.8 08/31/2014 [facility] HEMATOLOGY Basophils 0.5 % 0.0 - 1.0 08/31/2014 [facility] HEMATOLOGY Segs-Bands # 5.0 K/CMM 1.5 - 8.1 08/31/2014 [facility] HEMATOLOGY Lymphocytes 19.5 % 20.0 - 40.0 08/31/2014 [facility] HEMATOLOGY Segs 66.8 % 45.0 - 75.0 08/31/2014 [facility] HEMATOLOGY Monocytes 10.2 % 2.0 - 12.0 08/31/2014 [facility] HEMATOLOGY Eosinophils 3.0 % 0.0 - 4.0 08/31/2014 [facility] HEMATOLOGY Platelet 200 K/CMM 133 - 450 08/31/2014 [facility] HEMATOLOGY MPV 8.7 fL 7.4 - 10.4 08/31/2014 [facility] HEMATOLOGY WBC 7.4 K/CMM 3.7 - 10.4 08/31/2014 [facility] HEMATOLOGY RBC 4.90 M/CMM 4.70 - 6.10 08/31/2014 [facility] HEMATOLOGY Hct 45.7 % 42.0 - 54.0 08/31/2014 [facility] HEMATOLOGY Hgb 15.5 g/dL 14.0 - 18.0 08/31/2014 [facility] MCHC 34.0 g/dL 32.0 - 36.0 08/31/2014 [facility] HEMATOLOGY RDW 13.3 % 11.5 - 14.5 08/31/2014 [facility] HEMATOLOGY MCV 93.4 fL 80.0 - 94.0 08/31/2014 [facility] MCH 31.7 pg 27.0 - 31.0 08/31/2014 [facility] CARDIAC ENZYMES CK MB 2.5 ng/mL 0.5 - 3.6 08/29/2014 [facility] CARDIAC ENZYMES Troponin-I null 0.00 - 0.40 08/29/2014 [facility] CARDIAC ENZYMES Total CK 203 unit/L 12 - 191 08/29/2014 [facility] CARDIAC ENZYMES CK MB Index 1.2 0.0 - 2.5 08/29/2014 [facility] CHEM PANEL B/C Ratio 21 6 - 25 08/29/2014 [facility] CHEM PANEL AGAP 14.5 meq/L 10.0 - 20.0 08/29/2014 [facility] CHEM PANEL eGFR 78 mL/min/1.73m2 08/29/2014 3Result Comment: The eGFR is calculated using the CKD-EPI formula. In most young, healthy individuals the eGFR will be >90 mL/min/1.73m2. The eGFR declines with age. An eGFR of 60-89 may be normal in some populations, particularly the elderly, for whom the CKD-EPI formula has not been extensively validated. Use of the eGFR is not recommended in the following populations: Individuals with unstable creatinine concentrations, including patients and those with serious co-morbid conditions. Patients with extremes in muscle mass or diet. The data above are obtained from the National Kidney Disease Education Program (NKDEP) which additionally recommends that when the eGFR is used in patients with extremes of body mass index for purposes of drug dosing, the eGFR should be multiplied by the estimated BMI. [facility] CHEM PANEL Albumin Lvl 3.6 g/dL 3.5 - 5.0 08/29/2014 [facility] CHEM PANEL Creatinine Lvl 1.0 mg/dL 0.5 - 1.4 08/29/2014 [facility] CHEM PANEL CO2 22 meq/L 24 - 32 08/29/2014 [facility] CHEM PANEL Calcium Lvl 8.5 mg/dL 8.5 - 10.5 08/29/2014 [facility] CHEM PANEL Chloride Lvl 108 meq/L 95 - 109 08/29/2014 [facility] CHEM PANEL Sodium Lvl 140 meq/L 135 - 145 08/29/2014 [facility] CHEM PANEL Potassium Lvl 4.5 meq/L 3.5 - 5.1 08/29/2014 [facility] CHEM PANEL Glucose Lvl 103 mg/dL 70 - 99 08/29/2014 6Interpretive Data: Adult reference range values reflect the clinical guidelines of the [place] [employer]. [facility] CHEM PANEL BUN 21 mg/dL 7 - 22 08/29/2014 [facility] CHEM PANEL Alk Phos 87 unit/L 39 - 136 08/29/2014 [facility] CHEM PANEL Bili Total 1.1 mg/dL 0.2 - 1.3 08/29/2014 [facility] CHEM PANEL Globulin 2.9 g/dL 2.0 - 4.0 08/29/2014 [facility] CHEM PANEL Total Protein 6.5 g/dL 6.4 - 8.4 08/29/2014 [facility] CHEM PANEL AST 22 unit/L 0 - 37 08/29/2014 [facility] CHEM PANEL ALT 22 unit/L 0 - 65 08/29/2014 [facility] CHEM PANEL A/G Ratio 1.2 0.7 - 1.6 08/29/2014 [facility] Platelet 193 K/CMM 133 - 450 08/29/2014 [facility] MPV 8.5 fL 7.4 - 10.4 08/29/2014 [facility] MCH 30.8 pg 27.0 - 31.0 08/29/2014 [facility] MCHC 33.5 g/dL 32.0 - 36.0 08/29/2014 [facility] RDW 13.4 % 11.5 - 14.5 08/29/2014 [facility] MCV 92.0 fL 80.0 - 94.0 08/29/2014 [facility] Hct 49.2 % 42.0 - 54.0 08/29/2014 [facility] WBC 5.9 K/CMM 3.7 - 10.4 08/29/2014 [facility] Hgb 16.5 g/dL 14.0 - 18.0 08/29/2014 [facility] RBC 5.35 M/CMM 4.70 - 6.10 08/29/2014 [facility] INR 1.01 0.85 - 1.17 08/29/2014 8Interpretive Data: RECOMMENDED RANGES FOR PROTIME INR: 2.0-3.0 for most medical and surgical thromboembolic states. 2.5-3.5 for artificial heart valves and recurrent embolism. INR SHOULD BE USED ONLY FOR PATIENTS ON STABLE ANTICOAGULANT THERAPY. [facility] PT 13.3 s 12.0 - 14.7 08/29/2014 [facility] PTT 31.3 s 22.9 - 35.8 08/29/2014 10Interpretive Data: Heparin Therapeutic Range: 57 - 92 Seconds [facility] Monocytes 10.2 % 2.0 - 12.0 08/29/2014 [facility] Segs 68.3 % 45.0 - 75.0 08/29/2014 [facility] Lymphocytes 16.0 % 20.0 - 40.0 08/29/2014 [facility] Eosinophils # 0.3 K/CMM 0.0 - 0.5 08/29/2014 [facility] Monocytes # 0.6 K/CMM 0.0 - 0.8 08/29/2014 [facility] HEMATOLOGY Basophils # 0.1 K/CMM 0.0 - 0.2 08/29/2014 [facility] HEMATOLOGY Segs-Bands # 4.0 K/CMM 1.5 - 8.1 08/29/2014 [facility] HEMATOLOGY Lymphocytes # 0.9 K/CMM 1.0 - 5.5 08/29/2014 [facility] HEMATOLOGY Eosinophils 4.6 % 0.0 - 4.0 08/29/2014 [facility] HEMATOLOGY Basophils 0.9 % 0.0 - 1.0 08/29/2014 [facility] LIPIDS CHD Risk 4.49 4.00 - 7.30 08/29/2014 [facility] LIPIDS VLDL 18 08/29/2014 [facility] LIPIDS LDL (Calculated) 111 mg/dL <=99 mg/dL 08/29/2014 [facility] LIPIDS HDL 37 mg/dL >=61 mg/dL 08/29/2014 [facility] LIPIDS Chol 166 mg/dL <=199 mg/dL 08/29/2014 [facility] LIPIDS Trig 90 mg/dL <=149 mg/dL 08/29/2014 [facility] CARDIAC ENZYMES CK MB Index 1.4 0.0 - 2.5 08/29/2014 [facility] CARDIAC ENZYMES CK MB 2.5 ng/mL 0.5 - 3.6 08/29/2014 [facility] CARDIAC ENZYMES Troponin-I null 0.00 - 0.40 08/29/2014 [facility] CARDIAC ENZYMES Total CK 176 unit/L 12 - 191 08/29/2014 [facility] CARDIAC ENZYMES BNP 55 pg/mL <=100 pg/mL 08/29/2014 7Interpretive Data: Elevated results are in line with increasing severity of congestive heart failure. Minor elevations between 100 and 300 may be seen with Myocardial Ischemia, Sodium retaining drugs, and compensated/treated heart failure. [facility] CARDIAC ENZYMES Troponin-I null 0.00 - 0.40 08/29/2014 [facility] CARDIAC ENZYMES CK MB 3.2 ng/mL 0.5 - 3.6 08/29/2014 [facility] CARDIAC ENZYMES Total CK 220 unit/L 12 - 191 08/29/2014 [facility] CARDIAC ENZYMES CK MB Index 1.5 0.0 - 2.5 08/29/2014 [facility] CHEM PANEL Bili Total 0.6 mg/dL 0.2 - 1.3 08/29/2014 [facility] CHEM PANEL A/G Ratio 1.2 0.7 - 1.6 08/29/2014 [facility] CHEM PANEL Globulin 3.5 g/dL 2.0 - 4.0 08/29/2014 [facility] CHEM PANEL Alk Phos 106 unit/L 39 - 136 08/29/2014 [facility] CHEM PANEL AST 18 unit/L 0 - 37 08/29/2014 [facility] CHEM PANEL ALT 22 unit/L 0 - 65 08/29/2014 [facility] CHEM PANEL Total Protein 7.6 g/dL 6.4 - 8.4 08/29/2014 [facility] CHEM PANEL B/C Ratio 21 6 - 25 08/29/2014 [facility] CHEM PANEL Albumin Lvl 4.1 g/dL 3.5 - 5.0 08/29/2014 [facility] HEMATOLOGY PTT 28.7 s 22.9 - 35.8 08/29/2014 11Interpretive Data: Heparin Therapeutic Range: 57 - 92 Seconds [facility] HEMATOLOGY PT 12.7 s 12.0 - 14.7 08/29/2014 [facility] HEMATOLOGY INR 0.95 0.85 - 1.17 08/29/2014 9Interpretive Data: RECOMMENDED RANGES FOR PROTIME INR: 2.0-3.0 for most medical and surgical thromboembolic states. 2.5-3.5 for artificial heart valves and recurrent embolism. INR SHOULD BE USED ONLY FOR PATIENTS ON STABLE ANTICOAGULANT THERAPY. [facility] HEMATOLOGY Basophils # 0.1 K/CMM 0.0 - 0.2 08/29/2014 [facility] Vital Signs Vital Sign Value Date Comments Source Systolic (mm Hg) 133 08/14/2017 [facility] Diastolic (mm Hg) 96 08/14/2017 [facility] Respitory Rate 17 08/14/2017 [facility] Systolic (mm Hg) 121 08/14/2017 [facility] Diastolic (mm Hg) 90 08/14/2017 [facility] Respitory Rate 20 08/14/2017 [facility] Systolic (mm Hg) 120 08/14/2017 [facility] Diastolic (mm Hg) 78 08/14/2017 [facility] Respitory Rate 23 08/14/2017 [facility] BMI Calculated 36.36 08/14/2017 [facility] Weight 125 08/14/2017 [facility] Height 185.42 cm 08/14/2017 [facility] Diastolic (mm Hg) 82 09/01/2014 [facility] Temperature Oral (F) 97.6 F 09/01/2014 [facility] Systolic (mm Hg) 121 09/01/2014 [facility] Respitory Rate 18 09/01/2014 [facility] Heart Rate 61 09/01/2014 [facility] Respitory Rate 16 09/01/2014 [facility] Diastolic (mm Hg) 83 09/01/2014 [facility] Respitory Rate 18 09/01/2014 [facility] Heart Rate 59 09/01/2014 [facility] Systolic (mm Hg) 123 09/01/2014 [facility] Temperature Oral (F) 98.0 F 09/01/2014 [facility] Heart Rate 60 09/01/2014 [facility] Systolic (mm Hg) 141 09/01/2014 [facility] Diastolic (mm Hg) 92 09/01/2014 [facility] Temperature Oral (F) 98.2 F 09/01/2014 [facility] Weight 125.455 08/31/2014 [facility] BMI Calculated 36.49 08/31/2014 [facility] Height 185.42 cm 08/31/2014 [facility] Height 185.42 cm 08/28/2014 [facility] BMI Calculated 37.68 08/28/2014 [facility] Weight 129.545 08/28/2014 [facility] Encounters Location Location Details Encounter Type Encounter Number Reason For Visit Attending Provider ADM Date DC Date Status Source [facility] Inpatient [id number] Tello Childers 08/28/2014 09/01/2014 [facility] [place] [facility] [id number] Fareed Velasco 12/11/2014 12/12/2014 [facility] Outpatient [id number] Norris Spencer 09/19/2015 09/20/2015 [facility] [place] [facility] [id number] Fareed Velasco 03/10/2016 03/11/2016 [facility] Outpatient [id number] Curtis Alvarez 08/14/2017 08/14/2017 [facility] Outpatient [id number] NANCY ARAGON 06/24/2018 Active [facility] Outpatient [id number] JERSEY HORTON 07/06/2018 Active [facility] Outpatient [id number] JERSEY HORTON 07/28/2018 Active [facility] Outpatient [id number] JERSEY HORTON 08/10/2018 Active [facility] Procedures Procedure Code Date Perfomer Comments Source Procedure on back [id number] [facility] Miscellaneous operations [id number] [facility] Procedure on back [id number] [facility] Procedure on heart [id number] [facility]
--- OUTSIDE RECORDS SUMMARY | 2018-11-12 05:17 | XMS REPORT | Summary of Care ---
Author Author [facility] Outpatient Imaging [facility] Outpatient Imaging [facility] Address Unknown Phone Unavailable Encounter MEL Vickers(FIN) [id number] Date(s): 03/10/16 - 03/10/16 [facility] Outpatient Imaging [facility] [address] [facility], [address] [place] [address]- [facility] [phone] Discharge Disposition: Home Attending Physician: Fareed Velasco MD Vital Signs No data available for this section Problem List Condition Effective Dates Status Health Status Informant High Resolved cholesterol(Confirme d) Hypertension(Confirm Resolved ed) Sleep Resolved apnea(Confirmed) Umbilical Resolved hernia(Confirmed) Allergies, Adverse Reactions, Alerts Substance Reaction Severity Status penicillins Active Valium Active Medications No data available for this section Results No data available for this section Immunizations Vaccine Date Refusal Reason influenza virus vaccine, inactivated 09/01/14 Procedures Procedure Date Related Diagnosis Body Site Procedure on back Social History Social History Type Response Substance Abuse Use: None. Alcohol Current, Type Wine. Frequency: 1-2 times per week. Started age 20 Years. Previous treatment: None. Alcohol use interferes with work or home: No. Drinks more than intended: No. Others hurt by drinking: No. Household alcohol concerns: No.1 Smoking Status Never smoker; Previous treatment: None; Concerns about tobacco use in household: No; Exposure to Tobacco Smoke None; Cigarette Smoking Last 365 Days No; Reg Smoking Cessation Counseling No 1occasional social drinking , one drink per week with wine Assessment and Plan No data available for this section
--- OUTSIDE RECORDS SUMMARY | 2018-11-12 05:17 | XMS REPORT | Summary of Care ---
Author Author [facility] Organization [facility] Address Unknown Phone Unavailable Encounter HQ Stephanie_andrade(FIN) [id number] Date(s): 09/19/15 - 09/19/15 [facility] [address] [place] [address]- Discharge Disposition: Home Attending Physician: Norris Spencer MD Admitting Physician: Norris Spencer MD Vital Signs No data available for [...]
--- OUTSIDE RECORDS SUMMARY | 2018-11-12 05:17 | XMS REPORT | Summary of Care ---
Author Organization Unknown Address Unknown Phone Unavailable Encounter [facility] Alee(ANNIE) [id number] Date(s): 12/11/14 - 12/11/14 [facility] Outpatient Imaging - [place] [address] [place] [address]- [facility] [phone] Discharge Disposition: Home Physician Attending: Fareed Velasco MD Vital Signs No data [...] Reason influenza virus vaccine, inactivated 09/01/14 Procedures No data available for this section Social History Social History Type Response Substance [...]
--- OUTSIDE RECORDS SUMMARY | 2018-11-12 05:17 | XMS REPORT | Summary of Care ---
Author Organization Unknown Address Unknown Phone Unavailable Encounter MEL Vickers(ANNIE) [id number] Date(s): 08/28/14 - 09/01/14 [facility] [address] [address] - [facility] Discharge Disposition: Home Physician Attending: Tello Childers MD Physician Admitting: Tello Childers MD Reason for Visit BRADYCARDIA, CONCERN FOR SICK SINUS SYNDROME Vital Signs 1 2 3 Most recent to oldest [Reference Range]: 185.42 cm (08/30/14 9:30 PM) 185.42 cm (08/28/14 5:57 PM) Height 97.6 DegF (09/01/14 11:54 AM) 98.0 DegF (09/01/14 7:45 AM) 98.2 DegF (09/01/14 12:00 AM) Temperature Oral [96.4-99.1 DegF] 121 mmHg (09/01/14 11:54 AM) 123 mmHg (09/01/14 7:45 AM) 141 mmHg *HI* (09/01/14 4:00 AM) Systolic Blood Pressure [90-140 mmHg] 82 mmHg (09/01/14 11:54 AM) 83 mmHg (09/01/14 7:45 AM) 92 mmHg *HI* (09/01/14 4:00 AM) Diastolic Blood Pressure [60-90 mmHg] 18 BRMIN (09/01/14 11:54 AM) 16 BRMIN (09/01/14 9:38 AM) 18 BRMIN (09/01/14 7:45 AM) Respiratory Rate [14-20 BRMIN] 61 bpm (09/01/14 11:54 AM) 59 bpm *LOW* (09/01/14 7:45 AM) 60 bpm (09/01/14 4:00 AM) Peripheral Pulse Rate [60-100 bpm] 125.455 kg (08/30/14 9:30 PM) 129.545 kg (08/28/14 5:57 PM) Weight 36.49 m2 (08/30/14 9:30 PM) 37.68 m2 (08/28/14 5:57 PM) Body Mass Index Problem List Condition Effective Dates Status Health Status Informant High Resolved cholesterol(Confirme d) Hypertension(Confirm Resolved ed) Sleep Resolved apnea(Confirmed) Umbilical Resolved hernia(Confirmed) Allergies, Adverse Reactions, Alerts Substance Reaction Severity Status penicillins Active Valium Active Medications acetaminophen 325 mg, 1 tab, Route: PO, Drug form: TAB, Q4H, Dosing Weight 125.455, kg, PRN Pa in Score 4-6, Start date: 08/31/14 14:42:00, Duration: 30 day, Stop date: 14:41:00 Notes: Do not exceed 4 gm/day. (Same as: Tylenol) Start Date: 08/31/14 Stop Date: 09/01/14 Status: Discontinued acetaminophen 650 mg, 2 tab, Route: PO, Drug form: TAB, Q4H, Dosing Weight 125.455, kg, PRN Pa in Score 7-10, Start date: 08/31/14 14:42:00, Duration: 30 day, Stop date: 09/30 14:41:00 Notes: Do not exceed 4 gm/day. (Same as: Tylenol) Start Date: 08/31/14 Stop Date: 09/01/14 Status: Discontinued acetaminophen 650 mg, 2 tab, Route: PO, Drug form: TAB, Q4H, Dosing Weight 129.545, kg, PRN He adache 1-5, Start date: 08/30/14 8:38:00, Duration: 30 day, Stop date: 09/29/14 8:37:00 Notes: Do not exceed 4 gm/day. (Same as: Tylenol) Start Date: 08/30/14 Stop Date: 09/01/14 Status: Discontinued acetaminophen-codeine #3 1 tab, Route: PO, Drug Form: TAB, Dosing Weight 125.455, kg, Q4H, PRN Pain Score 4-6, Start date: 08/31/14 14:42:00, Duration: 30 day, Stop date: 09/30/14 14:41 :00 Notes: Do not exceed 4gm/day of acetaminophen. (Same as: Tylenol with Codeine # 3) Start Date: 08/31/14 Stop Date: 09/01/14 Status: Discontinued acetaminophen-hydrocodone 325 mg-7.5 mg oral tablet 0.5 tab, Route: PO, Drug Form: TAB, Dosing Weight 129.545, kg, Q6H, PRN For Pain , Start date: 08/29/14 9:08:00, Stop date: 09/28/14 9:07:00 Notes: Same as Bromide 325-7.5mg Do not exceed 4gm/day of acetaminophen. Start Date: 08/29/14 Stop Date: 09/01/14 Status: Discontinued acetaminophen-hydrocodone 325 mg-7.5 mg oral tablet 0.5 tab, PO, Q6H, as needed for pain Start Date: 08/28/14 Status: Ordered aspirin 81 mg, 1 tab, Route: PO, Drug form: ECTAB, Daily, Dosing Weight 129.545, kg, Sta rt date: 08/30/14 9:00:00, Duration: 30 day, Stop date: 09/28/14 9:00:00 Notes: Do not crush or chew.(Same As: Ecotrin) Start Date: 08/30/14 Stop Date: 08/29/14 Status: Discontinued aspirin 325 mg tablet 325 mg, 1 tab, Route: PO, Drug form: TAB, Daily, Dosing Weight 129.545, kg, Star t date: 08/29/14 12:15:00, Duration: 30 day, Stop date: 09/28/14 9:00:00 Notes: Take with food. Start Date: 08/29/14 Stop Date: 08/30/14 Status: Discontinued aspirin 81 mg tablet, enteric coated 81 mg, 1 tab, Route: PO, Drug form: ECTAB, Daily, Dosing Weight 129.545, kg, Sta rt date: 08/30/14 9:00:00, Duration: 30 day, Stop date: 09/28/14 9:00:00 Notes: Do not crush or chew.(Same As: Ecotrin) Start Date: 08/30/14 Stop Date: 09/01/14 Status: Discontinued aspirin 81 mg tablet, enteric coated 81 mg=1 tab, PO, Daily, # 100 tab, 0 Refill(s) Start Date: 09/01/14 Status: Ordered atorvastatin 20 mg, 2 tab, Route: PO, Drug form: TAB, Bedtime, Dosing Weight 129.545, kg, Sta rt date: 08/29/14 21:00:00, Duration: 30 day, Stop date: 09/27/14 21:00:00 Notes: (Same As: Lipitor) Start Date: 08/29/14 Stop Date: 09/01/14 Status: Discontinued atorvastatin 20 mg oral tablet 20 mg=1 tab, PO, Bedtime Start Date: 08/28/14 Status: Ordered atropine 0.5 mg, 5 mL, Route: IVP, Drug form: INJ, PRN, PRN Bradycardia, Start date: 08/19 11/01 18:44:00, Duration: 30 day, Stop date: 09/28/14 18:43:00 Start Date: 08/29/14 Stop Date: 09/01/14 Status: Discontinued Benicar 40 mg, 2 tab, Route: PO, Drug form: TAB, Daily, Dosing Weight 129.545, kg, Start date: 08/29/14 15:00:00, Duration: 30 day, Stop date: 09/28/14 9:00:00 Start Date: 08/29/14 Stop Date: 08/29/14 Status: Discontinued Benicar 40 mg oral tablet 40 mg=1 tab, PO, Daily Start Date: 08/28/14 Status: Ordered influenza virus vaccine, inactivated 0.5 ml, Route: IM, Drug Form: SUSP, Daily, Start date: 09/01/14 12:00:00, Durati on: 1 doses or times, Stop date: 09/01/14 12:00:00 Notes: (Same as: Fluzone Quadrivalent) Start Date: 09/01/14 Stop Date: 09/01/14 Status: Completed Lovenox 120 mg, 0.8 mL, Route: SUB-Q, Drug form: INJ, [id number], Dosing Weight 129.545, k g, Start date: 08/29/14 13:00:00, Duration: 30 day, Stop date: 09/28/14 1:00:00 Notes: Nurse to ensure documentation of patient education per anticoagulation po licy. (Same as: Lovenox) Start Date: 08/29/14 Stop Date: 08/30/14 Status: Discontinued Metoprolol Tartrate 25 mg oral tablet 12.5 mg=0.5 tab, PO, BID, # 30 tab, 0 Refill(s) Start Date: 09/01/14 Status: Ordered minocycline 100 mg oral capsule 100 mg=1 cap, PO, Q12H, # 14 cap, 0 Refill(s) Start Date: 09/01/14 Stop Date: 09/08/14 Status: Ordered nitroglycerin 0.4 mg sublingual tablet 0.4 mg, 1 tab, Route: SL, Drug form: TAB, Q5Min, Dosing Weight 129.545, kg, PRN Chest Pain, Start date: 08/29/14 12:22:00, Duration: 30 day, Stop date: 09/28/14 12:21:00 Notes: (Same as:Nitroquick, Nitrostat)"Do Not Crush" Sublingual tablet Start Date: 08/29/14 Stop Date: 09/01/14 Status: Discontinued nitroglycerin 0.4 mg sublingual tablet 0.4 mg, 0, Route: SL, Drug form: TAB, ONCE, Dosing Weight 129.545, kg, PRN Chest Pain, Start date: 08/29/14 12:14:00, Duration: 1 doses or times, Stop date: Aftab smithed # of times Start Date: 08/29/14 Stop Date: 08/29/14 Status: Discontinued nitroglycerin SL Tab 0.4 mg, Route: SL, Drug form: TAB, Q5Min, Dosing Weight 129.545, kg, PRN Chest P ain, Start date: 08/30/14 8:38:00, Duration: 3 doses or times, Stop date: Limite d # of times Start Date: 08/30/14 Stop Date: 08/30/14 Status: Deleted ondansetron 4 mg, 1 tab, Route: PO, Drug form: TAB, Q8H, Dosing Weight 129.545, kg, PRN Naus ea & Vomiting, Start date: 08/30/14 8:38:00, Duration: 30 day, Stop date: 09/29/14 8:37:00 Notes: (Same as: Xiomy) Start Date: 08/30/14 Stop Date: 09/01/14 Status: Discontinued Saline Flush 0.9% 10 ml, Route: IVP, Drug Form: INJ, Dosing Weight 129.545, kg, PRN, PRN Line Flus h, Start date: 08/29/14 12:13:00, Duration: 30 day, Stop date: 09/28/14 12:12:00 Notes: Same as: BD Posiflush Sterile Start Date: 08/29/14 Stop Date: 09/01/14 Status: Discontinued Saline Flush 0.9% 10 ml, Route: IVP, Drug Form: INJ, Dosing Weight 129.545, kg, Q12H, Start date: 08/29/14 21:00:00, Duration: 30 day, Stop date: 09/28/14 9:00:00 Notes: Same as: BD Posiflush Sterile Start Date: 08/29/14 Stop Date: 09/01/14 Status: Discontinued Sodium Chloride 0.9% IV 1,000 mL 1,000 mL, Rate: 30 ml/hr, Infuse over: 33.3 hr, Route: IV, Dosing Weight 129.545 kg, Total Volume: 1,000, Start date: 08/30/14 8:38:00, Duration: 30 day, Stop d ate: 09/29/14 8:37:00 Start Date: 08/30/14 Stop Date: 09/01/14 Status: Discontinued Tylenol with Codeine #3 oral tablet 2 tab, PO, Q6H, for pain, # 40 tab, 0 Refill(s) Start Date: 09/01/14 Status: Ordered vancomycin 1 gm, 200 mL, Route: IVPB, Drug form: INJ, ONCE, Dosing Weight 129.545, kg, ON C ALL TO REIMBURSEMENT DIRECTOR, Start date: 08/31/14 14:39:00, Stop date: 08/31/14 14:39:00 Start Date: 08/31/14 Stop Date: 08/31/14 Status: Completed vancomycin 1 gm, Route: IVPB, ONCE, Dosing Weight 125.455, kg, Start date: 08/31/14 14:42:0 0, Stop date: 08/31/14 14:42:00 Start Date: 08/31/14 Stop Date: 08/31/14 Status: Completed Results ELECTROLYTES 1 2 3 Most recent to oldest [Reference Range]: 141 mEq/L (09/01/14 5:07 AM) 141 mEq/L (08/31/14 4:41 AM) 140 mEq/L (08/29/14 9:10 AM) Sodium Lvl [135-145 mEq/L] 3.8 mEq/L (09/01/14 5:07 AM) 4.0 mEq/L (08/31/14 4:41 AM) 4.5 mEq/L (08/29/14 9:10 AM) Potassium Lvl [3.5-5.1 mEq/L] 108 mEq/L (09/01/14 5:07 AM) 107 mEq/L (08/31/14 4:41 AM) 108 mEq/L (08/29/14 9:10 AM) Chloride Lvl [95-109 mEq/L] 23 mEq/L *LOW* (09/01/14 5:07 AM) 25 mEq/L (08/31/14 4:41 AM) 22 mEq/L *LOW* (08/29/14 9:10 AM) CO2 [24-32 mEq/L] 13.8 mEq/L (09/01/14 5:07 AM) 13.0 mEq/L (08/31/14 4:41 AM) 14.5 mEq/L (08/29/14 9:10 AM) AGAP [10.0-20.0 mEq/L] CHEM PANEL 1 2 3 Most recent to oldest [Reference Range]: 1.0 mg/dL (09/01/14 5:07 AM) 1.2 mg/dL (08/31/14 4:41 AM) 1.0 mg/dL (08/29/14 9:10 AM) Creatinine Lvl [0.5-1.4 mg/dL] 78 mL/min/1.73m2 1 *NA* (09/01/14 5:07 AM) 62 mL/min/1.73m2 2 *NA* (08/31/14 4:41 AM) 78 mL/min/1.73m2 3 *NA* (08/29/14 9:10 AM) eGFR 21 mg/dL (09/01/14 5:07 AM) 23 mg/dL *HI* (08/31/14 4:41 AM) 21 mg/dL (08/29/14 9:10 AM) BUN [7-22 mg/dL] 21 (08/29/14 9:10 AM) 21 (08/28/14 6:12 PM) B/C Ratio [6-25] 99 mg/dL 4 (09/01/14 5:07 AM) 99 mg/dL 5 (08/31/14 4:41 AM) 103 mg/dL 6 *HI* (08/29/14 9:10 AM) Glucose Lvl [70-99 mg/dL] 6.5 g/dL (08/29/14 9:10 AM) 7.6 g/dL (08/28/14 6:12 PM) Total Protein [6.4-8.4 g/dL] 3.6 g/dL (08/29/14 9:10 AM) 4.1 g/dL (08/28/14 6:12 PM) Albumin Lvl [3.5-5.0 g/dL] 2.9 g/dL (08/29/14 9:10 AM) 3.5 g/dL (08/28/14 6:12 PM) Globulin [2.0-4.0 g/dL] 1.2 (08/29/14 9:10 AM) 1.2 (08/28/14 6:12 PM) A/G Ratio [0.7-1.6] 8.4 mg/dL *LOW* (09/01/14 5:07 AM) 8.2 mg/dL *LOW* (08/31/14 4:41 AM) 8.5 mg/dL (08/29/14 9:10 AM) Calcium Lvl [8.5-10.5 mg/dL] 22 unit/L (08/29/14 9:10 AM) 22 unit/L (08/28/14 6:12 PM) ALT [0-65 unit/L] 22 unit/L (08/29/14 9:10 AM) 18 unit/L (08/28/14 6:12 PM) AST [0-37 unit/L] 87 unit/L (08/29/14 9:10 AM) 106 unit/L (08/28/14 6:12 PM) Alk Phos [39-136 unit/L] 1.1 mg/dL (08/29/14 9:10 AM) 0.6 mg/dL (08/28/14 6:12 PM) Bili Total [0.2-1.3 mg/dL] 1Result Comment: The eGFR is calculated using [...] from the National Kid[employer] Education Program ( NKDEP) which additionally recommends that when the eGFR is used in patients with extremes of body mass index for purposes of drug dosing, the eGFR should be mul tiplied by the estimated BMI. 2Result Comment: The eGFR is calculated using [...] from the National Kid[employer] Education Program ( NKDEP) which additionally recommends that when the eGFR is used in patients with extremes of body mass index for purposes of drug dosing, the eGFR should be mul tiplied by the estimated BMI. 3Result Comment: The eGFR is calculated using [...] from the National Kid[employer] Disease Education Program ( NKDEP) which additionally recommends that when the eGFR is used in patients with extremes of body mass index for purposes of drug dosing, the eGFR should be mul tiplied by the estimated BMI. 4Interpretive Data: Adult reference range values reflect the clinical guidelines of the [place] [employer]. 5Interpretive Data: Adult reference range values reflect the clinical guidelines of the [place] [employer]. 6Interpretive Data: Adult reference range values reflect the clinical guidelines of the [place] [employer]. CARDIAC ENZYMES 1 2 3 Most recent to oldest [Reference Range]: 203 unit/L *HI* (08/29/14 9:10 AM) 176 unit/L (08/29/14 12:20 AM) 220 unit/L *HI* (08/28/14 6:12 PM) Total CK [12-191 unit/L] 2.5 ng/mL (08/29/14 9:10 AM) 2.5 ng/mL (08/29/14 12:20 AM) 3.2 ng/mL (08/28/14 6:12 PM) CK MB [0.5-3.6 ng/mL] 1.2 (08/29/14 9:10 AM) 1.4 (08/29/14 12:20 AM) 1.5 (08/28/14 6:12 PM) CK MB Index [0.0-2.5] <0.02 ng/mL (08/29/14 9:10 AM) <0.02 ng/mL (08/29/14 12:20 AM) <0.02 ng/mL (08/28/14 6:12 PM) Troponin-I [0.00-0.40 ng/mL] 55 pg/mL 7 (08/28/14 6:12 PM) BNP [<=100 pg/mL] 7Interpretive Data: Elevated results are in line with increasing severity of congestive heart failure. Minor elevations between 100 and 300 may be seen with Myocardial Ischemia, Sodium retaining drugs, and compensated/treated heart failure. LIPIDS 1 2 3 Most recent to oldest [Reference Range]: 4.49 (08/29/14 9:10 AM) CHD Risk [4.00-7.30] 166 mg/dL (08/29/14 9:10 AM) Chol [<=199 mg/dL] 90 mg/dL (08/29/14 9:10 AM) Trig [<=149 mg/dL] 37 mg/dL *LOW* (08/29/14 9:10 AM) HDL [>=61 mg/dL] 111 mg/dL *HI* (08/29/14 9:10 AM) LDL (Calculated) [<=99 mg/dL] 18 *NA* (08/29/14 9:10 AM) VLDL HEMATOLOGY 1 2 3 Most recent to oldest [Reference Range]: 6.0 K/CMM (09/01/14 5:07 AM) 7.4 K/CMM (08/31/14 4:41 AM) 5.9 K/CMM (08/29/14 9:10 AM) WBC [3.7-10.4 K/CMM] 5.01 M/CMM (09/01/14 5:07 AM) 4.90 M/CMM (08/31/14 4:41 AM) 5.35 M/CMM (08/29/14 9:10 AM) RBC [4.70-6.10 M/CMM] 15.8 g/dL (09/01/14 5:07 AM) 15.5 g/dL (08/31/14 4:41 AM) 16.5 g/dL (08/29/14 9:10 AM) Hgb [14.0-18.0 g/dL] 46.0 % (09/01/14 5:07 AM) 45.7 % (08/31/14 4:41 AM) 49.2 % (08/29/14 9:10 AM) Hct [42.0-54.0 %] 91.7 fL (09/01/14 5:07 AM) 93.4 fL (08/31/14 4:41 AM) 92.0 fL (08/29/14 9:10 AM) MCV [80.0-94.0 fL] 31.5 pg *HI* (09/01/14 5:07 AM) 31.7 pg *HI* (08/31/14 4:41 AM) 30.8 pg (08/29/14 9:10 AM) MCH [27.0-31.0 pg] 34.3 g/dL (09/01/14 5:07 AM) 34.0 g/dL (08/31/14 4:41 AM) 33.5 g/dL (08/29/14 9:10 AM) MCHC [32.0-36.0 g/dL] 13.4 % (09/01/14 5:07 AM) 13.3 % (08/31/14 4:41 AM) 13.4 % (08/29/14 9:10 AM) RDW [11.5-14.5 %] 183 K/CMM (09/01/14 5:07 AM) 200 K/CMM (08/31/14 4:41 AM) 193 K/CMM (08/29/14 9:10 AM) Platelet [133-450 K/CMM] 8.7 fL (09/01/14 5:07 AM) 8.7 fL (08/31/14 4:41 AM) 8.5 fL (08/29/14 9:10 AM) MPV [7.4-10.4 fL] 69.9 % (09/01/14 5:07 AM) 66.8 % (08/31/14 4:41 AM) 68.3 % (08/29/14 9:10 AM) Segs [45.0-75.0 %] 17.2 % *LOW* (09/01/14 5:07 AM) 19.5 % *LOW* (08/31/14 4:41 AM) 16.0 % *LOW* (08/29/14 9:10 AM) Lymphocytes [20.0-40.0 %] 8.9 % (09/01/14 5:07 AM) 10.2 % (08/31/14 4:41 AM) 10.2 % (08/29/14 9:10 AM) Monocytes [2.0-12.0 %] 3.5 % (09/01/14 5:07 AM) 3.0 % (08/31/14 4:41 AM) 4.6 % *HI* (08/29/14 9:10 AM) Eosinophils [0.0-4.0 %] 0.5 % (09/01/14 5:07 AM) 0.5 % (08/31/14 4:41 AM) 0.9 % (08/29/14 9:10 AM) Basophils [0.0-1.0 %] 4.2 K/CMM (09/01/14 5:07 AM) 5.0 K/CMM (08/31/14 4:41 AM) 4.0 K/CMM (08/29/14 9:10 AM) Segs-Bands # [1.5-8.1 K/CMM] 1.0 K/CMM (09/01/14 5:07 AM) 1.5 K/CMM (08/31/14 4:41 AM) 0.9 K/CMM *LOW* (08/29/14 9:10 AM) Lymphocytes # [1.0-5.5 K/CMM] 0.5 K/CMM (09/01/14 5:07 AM) 0.8 K/CMM (08/31/14 4:41 AM) 0.6 K/CMM (08/29/14 9:10 AM) Monocytes # [0.0-0.8 K/CMM] 0.2 K/CMM (09/01/14 5:07 AM) 0.2 K/CMM (08/31/14 4:41 AM) 0.3 K/CMM (08/29/14 9:10 AM) Eosinophils # [0.0-0.5 K/CMM] 0.1 K/CMM (08/29/14 9:10 AM) 0.1 K/CMM (08/28/14 6:12 PM) Basophils # [0.0-0.2 K/CMM] 13.3 seconds (08/29/14 9:10 AM) 12.7 seconds (08/28/14 6:12 PM) PT [12.0-14.7 seconds] 1.01 8 (08/29/14 9:10 AM) 0.95 9 (08/28/14 6:12 PM) INR [0.85-1.17] 31.3 seconds 10 (08/29/14 9:10 AM) 28.7 seconds 11 (08/28/14 6:12 PM) PTT [22.9-35.8 seconds] 8Interpretive Data: RECOMMENDED RANGES FOR PROTIME INR: 2.0-3.0 for most medical and surgical thromboembolic states. 2.5-3.5 for artificial heart valves and recurrent embolism. INR SHOULD BE USED ONLY FOR PATIENTS ON STABLE ANTICOAGULANT THERAPY. 9Interpretive Data: RECOMMENDED RANGES FOR PROTIME INR: 2.0-3.0 for most medical and surgical thromboembolic states. 2.5-3.5 for artificial heart valves and recurrent embolism. INR SHOULD BE USED ONLY FOR PATIENTS ON STABLE ANTICOAGULANT THERAPY. 10Interpretive Data: Heparin Therapeutic Range: 57 - 92 Seconds 11Interpretive Data: Heparin Therapeutic Range: 57 - 92 Seconds Medications Administered During Your Visit No data available for this section Immunizations Vaccine Date Refusal Reason influenza virus vaccine, inactivated 09/01/14 Procedures Procedure Type Body Site Date of Procedure Related Diagnosis Procedure on back Social History Social History Type Response Substance Abuse Use: None Alcohol Use: Current, Type: Wine, Frequency: 1-2 times per week, Previous treatment: None, Has alcohol use interfered with work or home life? No, Do you ever drink more than intended? No, Has anyone been hurt or at risk by your drinking? No, Concerns about alcohol use in household: No1 Smoking Status Never smoker, Previous treatment: None, Concerns about tobacco use in household: No, Exposure to Tobacco Smoke None, Cigarette Smoking Last 365 Days No, Reg Smoking Cessation Counseling No 1occasional social drinking , one drink per week with wine Assessment and Plan Extracted from: Title: Clinical Document Author: Kayla Rodriguez Date: 09/01/14 [facility] Internal Medicine Progress Note [facility] SUBJECTIVE No acute events. Pt denies HARTMAN, dizziness, dysphagia, neck stiffness, CP, SOB, hemoptysis, N/V/D/C, hematemesis, hematochezia, hematuria, dysuria, skin rash. Pt feeling well. OBJECTIVE Vital Signs (last 24 hrs) Last Charted Minimum Maximum Temp97.6 (SEP 01 11:54)97.6 (AUG 31 20:00)98.2 (SEP 01 00:00) Heart Rate61 (SEP 01 11:54)L 59 (SEP 01 07:45)61 (SEP 01 11:54) Resp Rate 18 (SEP 01 11:54)16 (SEP 01 09:38)20 (AUG 31 20:00) PRI392 (NOV 14 11:54)114 (NOV 13 20:00)H 141 (NOV 14 04:00) DBP82 (AUG 14 11:54)73 (AUG 13 20:00)H 92 (AUG 14 04:00) Labs (Last four charted values) WBC 6.0(NOV 14)7.4(NOV 13)5.9(NOV 11)7.8(NOV 10) Hgb 15.8(NOV 14)15.5(NOV 13)16.5(NOV 11)16.8(NOV 10) Hct 46.0(NOV 14)45.7(NOV 13)49.2(NOV 11)50.5(NOV 10) Plt 183(NOV 14)200(NOV 13)193(NOV 11)231(NOV 10) Na 141(NOV 14)141(NOV 13)140(NOV 11)138(NOV 10) K 3.8(NOV 14)4.0(NOV 13)4.5(NOV 11)4.4(NOV 10) CO2 L 23(NOV 14)25(NOV 13)L 22(NOV 11)27(NOV 10) Cl 108(NOV 14)107(NOV 13)108(NOV 11)105(NOV 10) Cr 1.0(NOV 14)1.2(NOV 13)1.0(NOV 11)1.3(NOV 10) BUN 21(NOV 14)H 23(NOV 13)21(NOV 11)H 27(NOV 10) Glucose Random 99(NOV 14)99(NOV 13)H 103(NOV 11)98(NOV 10) Ca L 8.4(NOV 14)L 8.2(NOV 13)8.5(NOV 11)8.9(NOV 10) PT 13.3(NOV 11)12.7(NOV 10) INR 1.01(NOV 11)0.95(NOV 10) PTT 31.3(NOV 11)28.7(NOV 10) Troponin <0.02(NOV 11)<0.02(NOV 11)<0.02(NOV 10) CK MB 2.5(NOV 11)2.5(NOV 11)3.2(NOV 10) Total CK H 203(NOV 11)176(NOV 11)H 220(NOV 10) Scheduled Meds (3):aspirin (aspirin 81 mg tablet, enteric coated), atorvastatin, sodium chloride (Saline Flush 0.9%) Unscheduled Meds: None PRN Meds (9):acetaminophen-codeine (acetaminophen-codeine #3), acetaminophen- hydrocodone (acetaminophen-hydrocodone 325 mg-7.5 mg oral tablet), acetaminophen, acetaminophen, acetaminophen, atropine, nitroglycerin (nitroglycerin 0.4 mg sublingual tablet), ondansetron, sodium chloride (Saline Flush 0.9%) One Time Meds (1):(not done) vancomycin Continuous Infusions (1):Sodium Chloride 0.9% IV 1,000 mL Physical Exam Gen: Pt resting comfortably, A&Ox3, NAD HEENT: PERRLA, EOMI, normocephalic, atraumatic, no thyromegaly, no neck stiffness Chest: RRR, no M/R/G, CTAB, no rhonchi wheezes or rales Abd: Bowel sounds present in 4 quads, soft, ND, NTTP Ext: No cyanosis or edema Skin: No rash noted ASSESSMENT & PLAN 1. Sinus bradycardia S/P pacemaker placement 2. CAD with 50% stenosis of LAD 3. HTN 4. Obesity Pt doing well, ok to d/c. Will d/c with ASA and BB. Have d/w EP use of BB given pt's bradycardia. Because pt is now paced, BB ok and required 2/2 CAD. Will also d/c with minocycline. F/U with cardio, EP, and PCP as outpt. agree with dc planning;also discussed with cardiology service
--- OUTSIDE RECORDS SUMMARY | 2018-11-12 05:17 | XMS REPORT | Summary of Care ---
Author Author [facility] Organization [facility] Address Unknown Phone Unavailable Encounter MEL Vickers(ANNIE) [id number] Date(s): 08/14/17 - 08/14/17 [facility] [address] [place] [address]- Discharge Disposition: Home or Self Care Attending Physician: Curtis Alvarez MD Referring Physician: Curtis Alvarez MD Vital Signs 1 2 3 Most recent to oldest [Reference Range]: 185.42 cm (08/14/17 10:59 AM) Height 133/96 mmHg (08/14/17 12:20 PM) 121/90 mmHg (08/14/17 12:05 PM) 120/78 mmHg (08/14/17 11:50 AM) Blood Pressure [90-140/60-90 mmHg] 17 BRMIN (08/14/17 12:20 PM) 20 BRMIN (08/14/17 12:05 PM) 23 BRMIN *HI* (08/14/17 11:50 AM) Respiratory Rate [14-20 BRMIN] 125 kg (08/14/17 10:59 AM) Weight 36.36 m2 (08/14/17 10:59 AM) Body Mass Index Problem List Condition Effective Dates Status Health Status Informant Cardiac Active pacemaker(Confirmed) CAD (coronary artery Active disease)(Confirmed) Gout(Confirmed) Active Hiatal Active hernia(Confirmed) High Resolved cholesterol(Confirme d) Hypertension(Confirm Resolved ed) Sleep Resolved apnea(Confirmed) Umbilical Resolved hernia(Confirmed) Allergies, Adverse Reactions, Alerts Substance Reaction Severity Status penicillins Active Valium Active Medications acetaminophen-hydrocodone 325 mg-7.5 mg oral tablet 1 tab, PO, PRN, 0 Refill(s) Start Date: 08/13/17 Stop Date: 08/14/17 Status: Completed Aleve 220 mg oral capsule 220 mg=1 cap, PO, Q12H, 0 Refill(s) Start Date: 08/13/17 Status: Ordered indomethacin 50 mg oral capsule 50 mg=1 cap, PO, BID, 0 Refill(s) Start Date: 08/13/17 Stop Date: 08/14/17 Status: Completed lisinopril 20 mg oral tablet 20 mg=1 tab, PO, Daily, 0 Refill(s) Start Date: 08/13/17 Status: Ordered metoprolol tartrate 25 mg oral tablet 12.5 mg=0.5 tab, PO, BID, 0 Refill(s) Start Date: 08/13/17 Status: Ordered oxybutynin 5 mg oral tablet 10 mg=2 tab, PO, Daily, 0 Refill(s) Start Date: 08/13/17 Stop Date: 08/14/17 Status: Completed Sodium Chloride 0.9% IV 1000 mL 1,000 mL, Rate: 25 ml/hr, Infuse over: 40 hr, Route: IV, Dosing Weight 125.455 k g, Total Volume: 1,000, Start date: 08/14/17 10:59:00 CDT, Duration: 30 day, Sto p date: 09/13/17 10:58:00 INFORMATICS COORDINATOR Start Date: 08/14/17 Stop Date: 08/14/17 Status: Discontinued Results No data available for this section Immunizations Given and Recorded Vaccine Date Status Refusal Reason influenza virus vaccine, inactivated 09/01/14 Given Procedures Procedure Date Related Diagnosis Body Site Miscellaneous operations Procedure on back Procedure on heart Social History Social History Type Response Substance Abuse Use: None. Alcohol Current, Type Wine. Frequency: 1-2 times per week. Started age 20 Years. Previous treatment: None. Alcohol use interferes with work or home: No. Drinks more than intended: No. Others hurt by drinking: No. Household alcohol concerns: No.1 Smoking Status Never smoker; Exposure to Tobacco Smoke None; Cigarette Smoking Last 365 Days No; Reg Smoking Cessation Counseling No 1occasional social drinking , one drink per week with wine Assessment and Plan No data available for this section
--- OUTSIDE RECORDS SUMMARY | 2018-11-12 05:17 | XMS REPORT ---
Author [facility] Address Unknown Phone Unavailable Care Team Providers Care Patrol Mother Name Role Phone BENJI LEVINE Unavailable Unavailable Renetta HURD Unavailable Unavailable Payers Payer Name Policy Type Policy Number Effective Date Expiration Date Problems This patient has no known problems. Allergies, Adverse Reactions, Alerts This patient has no known allergies or adverse reactions. Medications This patient has no known medications. Results Test Description Test Time Test Comments Text Results Atomic Results Result Comments CHEST 2 VIEWS 2018-11-10 17:12:00 [facility] [address], [place] [address] Patient Name: ALXEY HARPER JR MR #: [id number] : 1945 Age/Sex: 73/M Req #: [id number] Adm Physician: Ordered by: BENJI LEVINE MD Report #: [id number] Location: OR Room/Bed: Procedure: [id number] DX/CHEST 2 VIEWS Exam Date: 11/10/18 Exam Time: 1656 REPORT STATUS: Signed Frontal and lateral views of the chest. HISTORY: Preop, cystoureteroscopy COMPARISON: None available. DISCUSSION: Soft tissue attenuation partially limits sensitivity of the exam. Left-sided implanted dual-lead cardiac device. Lungs: Mildly low lung volumes result in bibasilar vascular crowding, accentuation of the pulmonary interstitial markings, central pulmonary vasculature, and the cardiac silhouette. Allowing for these limitations, the findings are as follows: No evidence of a consolidative pneumonia or pulmonary alveolar edema. Pleura: No pleural effusion or pneumothorax. Heart and mediastinum: The cardiomediastinal silhouette appears unremarkable. Bones and soft tissues: Appear unremarkable. IMPRESSION: No acute radiographic abnormality. Signed by: Dr. Katherine Lozada D.O., M.M.M. on 11/10/2018 5:14 PM Dictated By: KATHERINE LOZADA DO 13 Transcribed By: WOODY on 11/10/181713 COPY TO: BENJI LEVINE MD CHEST 2 VIEWS [place] [address] Patient Name: ALEXY HARPER JR MR #: [id number] : 1945 Age/Sex: 72/M Req #: [id number] Adm Physician: Ordered by: KAREN HURD MD Report #: [id number] Location: OR Room/Bed: Procedure: [id number] DX/CHEST 2 VIEWS Exam Date: 10/26/17 Exam Time: 1400 REPORT STATUS: Signed PROCEDURE: Frontal and lateral views of the chest. COMPARISON: None. INDICATIONS: PRE OP FINDINGS: Lines/tubes: Dual lead left chest wall cardiac device in place. Lungs: Limited by low lung volumes. There is no evidence of pneumonia or pulmonary edema. Pleura: There is no pleural effusion or pneumothorax. Heart and mediastinum: Enlarged cardiac silhouette. Bones: No acute bony abnormality. IMPRESSION: Enlarged cardiac silhouette. No focal consolidation. Dictated by: Sage Asher M.D. on 10/26/2017 at 14:29 Electronically approved by: Sage Asher M.D. on 10/26/2017 at 14:29 Dictated By: SAGE ASHER MD 1429 Transcribed By: ANU on 10/26/17 1429 COPY TO: KAREN MARTINEZ MD
[2018-11-12 08:45] VITALS: BP 104/73
--- NOTE | 2018-11-15 09:26 | Operative Report ---
DATE OF PROCEDURE: November 12, 2018 PREOPERATIVE DIAGNOSES 1. Bilateral spermatoceles. 2. Bilateral hydroceles. POSTOPERATIVE DIAGNOSES 1. Bilateral spermatoceles. 2. Bilateral hydroceles. PROCEDURES 1. Bilateral hydrocele repair. 2. Left spermatocele excision (entirely separate procedure for left spermatocele. 3. Right spermatocele excision (entirely separate procedure for diagnosis of right spermatocele). ANESTHESIA: General. ESTIMATED BLOOD LOSS: Minimal. COMPLICATIONS: None. INDICATIONS FOR PROCEDURE: Mr. Carter is a very pleasant 73-year-old male with a history of vasectomy, bilateral spermatoceles and hydroceles. He and I had a long discussion regarding the alternatives, risks and benefits, including doing nothing and repair. He voiced an understanding of the options, the alternatives, the risks and benefits. He voiced an understanding that this has a chance of recurrence, and he elected to proceed. PROCEDURE IN DETAIL: After informed consent was obtained, the patient was taken to the operative suite and placed supine on the operating table and underwent general anesthesia by the anesthesia service. He was placed in the supine position and prepped and draped in the standard fashion for scrotal surgery. A time out was taken. The patient had been given prophylactic antibiotics. Attention was turned to the midline scrotum, where an incision was made and carried through the skin and subcutaneous tissues. Attention was turned first toward the left side where the left testicle was delivered extravaginally. The hydrocele sac was incised, sewn back upon itself and closed in a bottle-neck fashion. Very large spermatoceles were seen. These were excised, and a outreach representative section was sent off the table as pathology. Meticulous hemostasis was obtained. The left testicle was then placed back in the cremasteric pouch on the left side. Attention was turned to the right hemiscrotum. Through the cremaster, the right testicle was delivered extravaginally. The hydrocele sac was densely adherent in multiple sections. The hydrocele sac was closed upon itself in an imbricating fashion. A small section was taken off and sent for pathology. There was a very small spermatocele, approximately 3 mm, at the head of the epididymis. This was incised and the base fulgurated. At this time, no other spermatocele was seen. The right testicle was returned back in its anatomic position and location in the cremasteric pouch. The wound was then irrigated. Quarter-percent Marcaine was injected. The cremaster was closed with a running chromic gut stitch. The skin was closed with a running chromic gut stitch. The wounds were dressed. The sponge and instrument counts were correct x2. The patient was awakened from anesthesia and transported to the recovery room in excellent condition. No untoward effects were noted. Job#: [id number]
== END | disposition home or self-care (01) ==
LOC: OR 05:13
PROVIDERS: ATTEND Urology
DX: N43.3 Hydrocele, unspecified (principal); N28.1 Cyst of kidney, acquired; N40.1 Benign prostatic hyperplasia with lower urinary tract symptoms; N13.8 Other obstructive and reflux uropathy; R39.14 Feeling of incomplete bladder emptying; R35.1 Nocturia; I45.10 Unspecified right bundle-branch block; M54.31 Sciatica, right side; G47.33 Obstructive sleep apnea (adult) (pediatric); I10 Essential (primary) hypertension; E78.5 Hyperlipidemia, unspecified; R73.03 Prediabetes; K57.90 Diverticulosis of intestine, part unspecified, without perforation or abscess without bleeding; Z88.0 Allergy status to penicillin; Z88.8 Allergy status to other drugs, medicaments and biological substances; Z01.810 Encounter for preprocedural cardiovascular examination; Z01.812 Encounter for preprocedural laboratory examination; Z01.818 Encounter for other preprocedural examination; Z68.38 Body mass index [BMI] 38.0-38.9, adult; Z95.0 Presence of cardiac pacemaker
CPT/HCPCS: 36415; 54840; 55041; 71046; 85025; 88304; 93005; J0690; J1100; J2001; J2250; J2704